=== PATIENT | female | born 1935 | race Caucasian/White ===

== ENCOUNTER 2017-11-20 05:36 | Day surgery (SDC) | payer OTHER ==
[~2017-11-20] VITALS: Ht 167.6 cm; Wt 66.2 kg
--- NOTE | ~2017-11-20 | O ---
[facility] [place] [address] OPERATIVE REPORT Name: SHWETHA TRINH Room #: DEP [facility].#: [id number] Admission: 11/20/17 Attend Phys: Jose Dalton MD Discharge: 11/20/17 Date of : 37 Report #: [id number] THIS REPORT FOR: //name// CC: Randi Dalton DATE OF SERVICE: 11/20/2017 PREOPERATIVE DIAGNOSIS: Basal cell carcinoma of right lower lid and right lateral canthus. POSTOPERATIVE DIAGNOSIS: Basal cell carcinoma of right lower lid and right lateral canthus. PROCEDURE: Excision of basal cell carcinoma of right lower lid, cheek and lateral canthus with myocutaneous flap repair of defect, vascularized tarsoconjunctival flap from right upper lid to right lower lid and full thickness skin graft from right shoulder to right lower lid. SURGEON: Jose Dalton MD TAFE TEACHER: None. ANESTHESIA: General. COMPLICATIONS: None. INDICATIONS FOR SURGERY: This pleasant 82-year-old woman has a biopsy proven basal cell carcinoma in her right lower lid that extends through the canthus and on to her cheek. She presents today for excision of the tumor with frozen sections and subsequent reconstruction of that defect. Informed consent was obtained to include, but not limited to the potential risk for loss of vision, bleeding, infection, failure to improve the problem, and the potential need for further surgery or treatment. DESCRIPTION OF PROCEDURE: The patient was taken to the operating room where general anesthesia was administered. The right lower lid, the right lateral canthus, the right upper lid, the right shoulder and the right cheek were all anesthetized with Xylocaine with epinephrine mixed with Marcaine and Wydase. The patient was subsequently prepped and draped in the usual sterile fashion for this procedure. A fine tip skin marking pen was then utilized to outline the lesion including 1-2 mm of normal appearing tissue around its margins. This took off between 08/[address] [address] OPERATIVE REPORT Name: SHWETHA TRINH Room #: DEP [facility] [place] M.R.#: [id number] Admission: 11/20/17 Attend Phys: Jose Dalton MD Discharge: 11/20/17 Date of : 37 Report #: [id number] and 12/10 of the right lower lid to include the right lateral canthus. The incisions were then made with a Flores scissor and the dissection drawn down to a point in the lower lid retractors and then subsequently connected horizontally. The specimen was then oriented on a drawing for the waiting pathologist as hemostasis was achieved in the field with diligent pinpoint monopolar cautery. The pathologist snap froze that tissue and found that the margins were indeed clear. A myocutaneous flap was then elevated laterally to correct the canthal portion of the defect and a portion of the right lower lid. Hemostasis was then re-achieved. That flap was secured laterally to the periosteum with deep 5-0 Vicryl sutures. The right upper lid was then everted and an incision made across the width of the lid 3.5 mm superior to the mature lashes. A vascularized tarsoconjunctival flap was then developed in a standard fashion utilizing thin section techniques. That flap was then rotated into position and secured to its bed in the lower eyelid with 6-0 Vicryl sutures. The lower lid retractors were reapproximated back in the orbit with 6-0 Vicryl sutures. The residual anterior lamellar defect was then outlined in the supraclavicular area. The incision was then made with a 15C blade and full thickness skin graft harvested with thin section techniques. That donor bed was dried and then closed with interrupted buried 5-0 Vicryl sutures deep and then a 5-0 subcuticular nylon suture more superficially. It was then dressed with an Op-Site. The full thickness skin graft was then defatted and secured to its bed in the right lower lid with cardinal bites of 7-0 Vicryl suture. 6-0 plain gut sutures were used for the final closure. Erythromycin ointment was then placed on the full thickness skin graft followed by Telfa pads, that were held in place then with a larger Telfa pad and two eye pads that were secured with silk tape and Mastisol. The patient was subsequently transported to the recovery area having tolerated the procedures well with no anesthetic or operative complications being noted. By: [id number] Jose Dalton MD /nt
[~2017-11-20 05:36] MED LIST: ACYCLOVIR 400400 MG PO; AMITRIPTYLINE H50 M2 PO; CALCIUM 600 +1 EAC1 PO; CARDIO TABS PO; FLUOXETINE HCL40 MG PO; FLUTICASONE PRO16 GM NASAL; LIPITOR 20 MG T20 M1 PO; OMEPRAZOLE40 MG PO; SYMBICORT160 MCG/4. INH; TOBRADEX EYE O3.5 GM OPHTHALMIC; TYLENOL325 MG PO; VITAMIN B-12500 MCG PO; VITAMIN D1000 UNI1 PO
[2017-11-20 15:00] VITALS: BP 154/95
== END 2017-11-20 16:52 | disposition home or self-care (01) ==
LOC: OR 05:36 → TBA 05:36 → OR 08:37
DX: C44.119 Basal cell carcinoma of skin of left eyelid, including canthus (principal); I10 Essential (primary) hypertension; E78.5 Hyperlipidemia, unspecified; J43.9 Emphysema, unspecified; K21.9 Gastro-esophageal reflux disease without esophagitis; F32.9 Major depressive disorder, single episode, unspecified; F41.9 Anxiety disorder, unspecified; Z87.891 Personal history of nicotine dependence; Z85.828 Personal history of other malignant neoplasm of skin; Z90.710 Acquired absence of both cervix and uterus; Z98.41 Cataract extraction status, right eye; Z98.42 Cataract extraction status, left eye; Z98.890 Other specified postprocedural states; Z79.899 Other long term (current) drug therapy; Z88.0 Allergy status to penicillin; Z88.2 Allergy status to sulfonamides; Z88.8 Allergy status to other drugs, medicaments and biological substances
CPT/HCPCS: 50010; 50101; 50386; 50398; 51636; 56527; 56531; 62110; 62900; 64037; 70005

== ENCOUNTER 2018-01-25 05:30 | Day surgery (SDC) | payer OTHER ==
[~2018-01-25] VITALS: Ht 167.6 cm; Wt 66.2 kg
--- NOTE | ~2018-01-25 | O ---
[facility] [place] [address] OPERATIVE REPORT Name: SHWETHA TRINH Room #: 150-7 [facility] M.R.#: [id number] Admission: 01/25/18 Attend Phys: Jose Dalton MD Discharge: Date of : 37 Report #: [id number] THIS REPORT FOR: //name// CC: Randi Dalton DATE OF SERVICE: 01/25/2018 PREOPERATIVE DIAGNOSIS: Basal cell carcinoma of right lower lid. POSTOPERATIVE DIAGNOSIS: Basal cell carcinoma of right lower lid. PROCEDURE: Second stage Tripp reconstruction, right eye. SURGEON: Jose Dalton M.D. BATTERY ASSEMBLER PLASTIC: None. ANESTHESIA: General. COMPLICATIONS: None. INDICATIONS FOR SURGERY: This pleasant 82-year-old woman underwent resection of a right lower lid, basal cell carcinoma on 11/20/2017. She had a stage Tripp reconstruction done of her eyelid at that point in time and presents for a second stage Tripp reconstruction on the right side today. Informed consent was obtained to include but not limited to the potential risk for bleeding, infection, loss of vision, and the potential need for further surgery or treatment. DESCRIPTION OF PROCEDURE: The patient was taken to the operating room where general anesthesia was administered. The right upper and right lower lids were then anesthetized with Xylocaine with epinephrine mixed with Marcaine and Wydase. The patient was subsequently prepped and draped in the usual sterile fashion. A groove director was then placed behind the pedicle from the right upper lid to the right lower lid. A high temp cautery was then used to make an incision across the bridge flap the eyelids. The right lower lid was then everted and the conjunctiva was then smoothed and allowed to roll over the eyelid margin in a standard fashion. The right upper lid was then everted and the donor stump was trimmed back smoothed with superior border of the new tarsal plate. The conjunctivae there was smoothed as well. The wound was then dressed with erythromycin ophthalmic ointment. The patient [address] [address] OPERATIVE REPORT Name: SHWETHA TRINH Room #: [address] [place] [address]..#: [id number] Admission: 01/25/18 Attend Phys: Jose Dalton MD Discharge: Date of : 37 Report #: [id number] subsequently transported to the recovery area having tolerated the procedure well with no anesthetic or operative complications being noted. By: [id number] Jose Dalton MD /nt
[~2018-01-25 05:30] MED LIST changes: +APAP650 PO
[2018-01-25 10:08] VITALS: BP 127/69
== END 2018-01-25 11:22 | disposition home or self-care (01) ==
LOC: OR 05:30 → TBA 05:31 → OR 11:22
DX: C44.112 Basal cell carcinoma of skin of right eyelid, including canthus (principal); E78.5 Hyperlipidemia, unspecified; J43.9 Emphysema, unspecified; K21.9 Gastro-esophageal reflux disease without esophagitis; F32.9 Major depressive disorder, single episode, unspecified; F41.9 Anxiety disorder, unspecified; Z87.891 Personal history of nicotine dependence; Z85.828 Personal history of other malignant neoplasm of skin; Z98.890 Other specified postprocedural states; Z90.710 Acquired absence of both cervix and uterus; Z98.41 Cataract extraction status, right eye; Z98.42 Cataract extraction status, left eye; Z79.899 Other long term (current) drug therapy; Z88.0 Allergy status to penicillin; Z88.2 Allergy status to sulfonamides; Z88.8 Allergy status to other drugs, medicaments and biological substances
CPT/HCPCS: 50010; 50101; 50386; 50398; 51636; 64037; 70005